=== PATIENT | female | born 1965 | race African-American/Black ===

== ENCOUNTER → 2024-01-31 | Day surgery (SDC) | payer BC ==
[~2024-01-31] MED LIST: AMLODIPINE BESY10 MG PO; B-121000 MC2; FAMOTIDINE20 MG PO; LIDOCAINE HCL 2% LOCAL INJ 5 ML SDV VIAL INJ ONE; MIDAZOLAM HCL 2 MG/2 ML VIAL ONE; OMEPRAZOLE40 MG PO; PROPOFOL IV EMULSION 10 MG/ML 20 ML VIAL ONE; SIMETHICONE 40 MG/0.6 ML BTL ONE; VITAMIN D31 ML
[2024-01-31] MEDS: LACTATED RINGER'S 1,000 ML ONE (12:49)
[2024-01-31 15:57] VITALS: TEMP 97.6
[2024-01-31 16:25] VITALS: BP 117/72; PULSE 82; RESP 15; O2SAT 99
== END | disposition home or self-care (01) ==
LOC: OR 12:22
PROVIDERS: ATTEND Internal Medicine Gastroenterology
DX: Z12.11 Encounter for screening for malignant neoplasm of colon (principal); D12.2 Benign neoplasm of ascending colon; D12.4 Benign neoplasm of descending colon; K64.1 Second degree hemorrhoids; K62.5 Hemorrhage of anus and rectum; K59.00 Constipation, unspecified; K21.9 Gastro-esophageal reflux disease without esophagitis; D64.9 Anemia, unspecified; I10 Essential (primary) hypertension; Z01.810 Encounter for preprocedural cardiovascular examination; Z79.899 Other long term (current) drug therapy; Z68.32 Body mass index [BMI] 32.0-32.9, adult
CPT/HCPCS: 45380; 45384; 93005; J2003; J2250; J2704; J7121